=== PATIENT | female | born 1975 | race American Indian/Alaskan Native ===

== ENCOUNTER 2016-04-30 20:18 | Emergency (ER) | payer MEDICARE ==
[2016-05-01 01:22] VITALS: BP 145/99
[2016-05-01] MEDS ORDERED: DEPO-MEDROL IM ONE (01:34)
[2016-05-01] MEDS ORDERED: TYLENOL #3 PO ONE (01:34)
--- NOTE | 2016-05-01 02:07 | Emergency Department Report ---
ED General Adult HPI - General Chief complaint: Back Pain/Injury Stated complaint: HEADACHE, BACK PAIN Time Seen by Provider: 05/01/16 01:33 Source: patient Mode of arrival: Ambulatory Limitations: No Limitations - History of Present Illness Initial comments: Patient with history of chronic back pain, migraine headache, and recent spinal/ epidural injection on 04/24/16 complains of 1-day onset of right-sided headache that radiates to her neck, and increased right-sided mid and low back oain since her injection. States this headache intensified than her previous migraine equivalent. States seen at another ED the day after her procedure and DC'd on Diclifenac and Flexeril for pain. States meds not helping pain or headache. Reports nausea w/o vomiting, photophobia. Denies fever, chills, change or blurred vision, ear pain or discomfort, facial pain or pressure, chest pain or discomfort, difficulty breathing or SOB, weakness or paralysis, confusion, sleepiness, LOC, seizures, skin rash, urinary symptoms. Reports partial hysterectomy in 2007. Aspirin allergies confirmed by patient. States asthmatic too, but currently asymptomatic. No other acute complaints. Severity scale (0 -10): 8 - Related Data Allergies Allergy/AdvReac Type Severity Reaction Status Date / Time aspirin Allergy Shortness Verified 04/30/16 21:10 of Breath ED Review of Systems ROS: Stated complaint: HEADACHE, BACK PAIN Other details as noted in HPI Comment: All other systems reviewed and negative ED Past Medical Hx - Past Medical History Previous Medical History?: Yes Hx GERD: Yes Hx Headaches / Migraines: Yes Hx Asthma: Yes Additional medical history: Chronic back pain. Fibromyalgia - Surgical History Past Surgical History?: Yes Additional Surgical History: tubal ligation. Parital Hysterectomy.. Tubal ligationBlock procedure on L5 - Social History Smoking Status: Never Smoker Substance Use Type: None ED Physical Exam - General Limitations: No Limitations General appearance: alert, in no apparent distress - Head Head exam: Present: atraumatic, normocephalic, normal inspection - Eye Eye exam: Present: normal appearance, PERRL, EOMI. Absent: scleral icterus, conjunctival injection, periorbital swelling, periorbital tenderness - ENT ENT exam: Present: normal exam, normal orophraynx, mucous membranes moist, TM's normal bilaterally, normal external ear exam - Neck Neck exam: Present: normal inspection, tenderness (right), meningismus. Absent : full ROM (mildle limited due to pain), lymphadenopathy - Respiratory Respiratory exam: Present: normal lung sounds bilaterally. Absent: respiratory distress, wheezes, rales, rhonchi, chest wall tenderness, accessory muscle use, decreased breath sounds, prolonged expiratory - Cardiovascular Cardiovascular Exam: Present: regular rate, normal rhythm - GI/Abdominal GI/Abdominal exam: Present: soft. Absent: tenderness - Extremities Exam Extremities exam: Present: normal inspection, full ROM, normal capillary refill. Absent: tenderness, pedal edema, joint swelling, calf tenderness - Back Exam Back exam: Present: normal inspection, tenderness, paraspinal tenderness (right mid to low back.). Absent: full ROM (limited due to pain), CVA tenderness (R), CVA tenderness (L), vertebral tenderness - Neurological Exam Neurological exam: Present: alert, oriented X3, normal gait, reflexes normal. Absent: motor sensory deficit - Psychiatric Psychiatric exam: Present: normal affect, normal mood - Skin Skin exam: Present: warm, dry, intact, normal color. Absent: rash, cyanosis, diaphoretic, erythema, urticaria, vesicles, petechiae, pallor, abrasion, ecchymosis ED Course Vital Signs 04/30/16 05/01/16 21:10 01:17 Temperature 98.7 F Pulse Rate 97 H 74 Respiratory 20 16 Rate Blood Pressure 125/88 145/99 [Left] O2 Sat by Pulse 100 95 Oximetry - Reevaluation(s) Reevaluation #1: 05/01/16 02:24 patient refused Tylenol 3. States she can't take it due to her stomach. States she is going to leave to go to her doctor. She is aware of the importance of working her up to r/o life-threatening conditions such as meningitis. Patient refused to sign AMA form, walked out during discussion of follow up and return instruction. 05/01/16 02:27 ED Medical Decision Making - Differential Diagnosis meningeal irritation, migraine santos, chronic back pain Critical care attestation.: If time is entered above; I have spent that time in minutes in the direct care of this critically ill patient, excluding procedure time. ED Disposition Clinical Impression: Meningeal irritation Disposition: LEFT AGAINST MEDICAL ADVICE Is pt being admited?: No Does the pt Need Aspirin: No Condition: Stable Instructions: Viral Meningitis (ED), Chronic Back Pain (ED), Migraine Headache (ED) Referrals: PRIMARY CARE, [Primary Care Provider] - 24 Hours AUNDREA CANADA MD [Staff Physician] - 24 Hours BLANCA MORGAN MD [Staff Physician] - 2-3 Days Forms: AMA Form
[2016-05-01] MEDS ORDERED: ZOFRAN ODT PO ONE (02:12)
== END 2016-05-01 02:29 | disposition left against medical advice (07) ==
LOC: ED 20:18
DX: R29.1 Meningismus (principal); M54.5 Low back pain; K21.9 Gastro-esophageal reflux disease without esophagitis; J45.909 Unspecified asthma, uncomplicated; G89.29 Other chronic pain; G43.909 Migraine, unspecified, not intractable, without status migrainosus; Z88.6 Allergy status to analgesic agent
CPT/HCPCS: 96372; 99282; J1040; Q0162